=== PATIENT | female | born 1950 | race Caucasian/White ===

== ENCOUNTER 2023-06-05 10:58 | Emergency (ER) | payer MEDICARE | END 2023-06-05 15:01 | disposition home or self-care (01) | LOC: ERS 10:58 | DX: S52.124A Nondisplaced fracture of head of right radius, initial encounter for closed fracture (principal); S70.11XA Contusion of right thigh, initial encounter; S70.01XA Contusion of right hip, initial encounter; W19.XXXA Unspecified fall, initial encounter | CPT/HCPCS: 29125; 72170 ==